=== PATIENT | female | born 1975 | race African-American/Black ===

== ENCOUNTER 2017-11-23 22:52 | Emergency (ER) | payer BC, OTHER ==
[2017-11-24] MEDS ORDERED: HYDROcodone/Acetaminophen 10/325 mg Tablet ONE (00:17)
--- NOTE | 2017-11-24 07:47 | RAD ---
RIGHT HIP 2 VIEWS: Date 11/24/17 HISTORY: Pain. COMPARISON: None. FINDINGS: No fracture. No malalignment. Right SI joint is unremarkable. Soft tissues unremarkable. IMPRESSION: Normal exam. POS: [facility]
== END 2017-11-24 00:50 | disposition home or self-care (01) ==
LOC: ERS 22:52
DX: S70.01XA Contusion of right hip, initial encounter (principal); W01.0XXA Fall on same level from slipping, tripping and stumbling without subsequent striking against object, initial encounter; Y93.E5 Activity, floor mopping and cleaning; Y92.009 Unspecified place in unspecified non-institutional (private) residence as the place of occurrence of the external cause